=== PATIENT | female | born 1960 | race Caucasian/White ===

== ENCOUNTER 2022-05-26 10:37 | Outpatient (CLI) | payer BC, SELFPAY ==
--- NOTE | 2022-05-26 11:00 | CRLHL7_ITS ---
For Patients: As a result of the Century Cures Act, medical imaging exams and procedure reports are released immediately into your electronic medical record. You may view this report before your referring provider. If you have questions, please contact your health care provider. Indication: non-small cell lung cancer Technique: Postcontrast CT chest, abdomen and pelvis. 65 cc Isovue 370 intravenous contrast. Oral water. Please note that all CT scans at this facility use dose modulation, iterative reconstruction, and/or weight-based dosing when appropriate to reduce radiation dose to as low as reasonably achievable. Comparison: MRI pelvis 02/06/2021, CT chest 05/05/2021, CT-PET 07/06/2021 Findings: In the chest, there is a stable heterogeneous nodule within the left thyroid lobe. Stable focal area of low attenuation within the right paratracheal tissues. No pericardial effusion. Breast tissue is unremarkable. Post treatment changes to the right upper lung with linear areas of scarring, unchanged. No pneumothorax or pleural effusion. No pulmonary edema. There is a stable calcified nodule within the left upper lobe and additional stable nodule within the lingula. No new nodule. Chronic scarring at the left lower lobe. No fracture is present. There is no suspicious osseous lesion. In the abdomen, there is no suspicious intrahepatic lesion. The gallbladder is normal. No calcified gallstones. No biliary obstruction. Normal pancreas. The spleen is normal. Normal adrenal glands. No solid renal mass. Simple left renal cysts are present measuring up to 2.2 cm. The ureters are within normal limits. Dense vascular calcifications in the aorta. The aorta is ectatic measuring up to 2.5 cm. No retroperitoneal or mesenteric adenopathy. No vertebral body compression fracture. In the pelvis, stable appearance of the left sacrum with a mildly displaced fracture deformity. The pubic rami are intact. The bladder is normal. No pelvic soft tissue mass. Diverticulosis. No diverticulitis. Normal appendix. No pelvic or inguinal adenopathy. Impression: Stable post treatment changes to the right upper lung and stable appearance of the mediastinum without new findings in the chest compared to the prior exams. Stable left-sided pulmonary nodules. Similar appearance of the left sacrum with a fracture deformity. Correlate with the CT PET report. No adenopathy in the abdomen or pelvis. Please note that all CT scans at this facility use dose modulation, iterative reconstruction, and/or weight-based dosing when appropriate to reduce radiation dose to as low as reasonably achievable. Dictated by Panfilo Salas MD @ 05/27/2022 11:06:40 AM (Electronically Signed)
[2022-05-26 11:10] LABS: Creatinine* 0.9 mg/dL (0.5-1.5); Estimated Glomerular Filt Rate 72 ml/min
== END 2022-05-26 10:38 | disposition home or self-care (01) ==
LOC: CT 10:37
PROVIDERS: PCP Family Medicine; Visit Provider Internal Medicine Hematology & Oncology
DX: C34.11 Malignant neoplasm of upper lobe, right bronchus or lung (principal); R91.8 Other nonspecific abnormal finding of lung field
CPT/HCPCS: 36415; 71260; 74177; 82565; Q9967

== ENCOUNTER 2023-02-28 16:26 | Emergency (ER) | payer BC, SELFPAY ==
[2023-02-28] VITALS (8 sets, daily range): BP systolic 129–143; BP diastolic 80–90; PULSE 97–115; RESP 18; TEMP 36.8; O2SAT 91–97; BMI 26.6
--- NOTE | 2023-02-28 17:32 | CRLHL7_ITS ---
For Patients: As a result of the 21st Century Cures Act, medical imaging exams and procedure reports are released immediately into your electronic medical record. You may view this report before your referring provider. If you have questions, please contact your health care provider. INDICATION: Shortness of breath. Tachycardia. Non-small cell lung cancer. Weakness. History of right lobectomy. TECHNIQUE: CT chest pulmonary angiogram acquired with 95 cc of Isovue 370 IV contrast. Sagittal and coronal reformatted images submitted for review. COMPARISON: CT chest, abdomen and pelvis 05/26/2022. FINDINGS: Cardiovascular structures: CT pulmonary angiogram demonstrates adequate opacification of the pulmonary arteries. No evidence of pulmonary embolus. Heart size is within normal limits. Coronary artery calcifications. Aortic atherosclerosis. Thoracic aorta is normal in caliber. Mediastinum and jordyn: No progressive lymphadenopathy. Lungs: No pneumothorax. Central airways are patent. Right upper lobe treatment related changes with scarring and atelectasis again noted. Dense opacification of the anterior right middle lobe with nodular opacity on image 41 of series 5 it is new/increased. There are multiple additional new bilateral subcentimeter nodular and ground-glass opacities. For example, an irregular right lung nodule on image 81 measures 15 mm. Additional dense irregular consolidation on image 94. Focal dense consolidation in the left lower lobe on image 157. Nodular opacities in the lingula, for example as seen on image 117 are also new. Stable left upper lobe calcified granuloma. Pleura and pericardium: Trace bilateral pleural fluid versus pleural thickening. No pericardial effusion. Chest wall and axilla: Stable heterogeneous nodule in the left thyroid lobe. Soft tissues of the thoracic wall are otherwise unremarkable. Bones: No acute or suspicious osseous abnormality. Degenerative changes of the spine. Upper abdomen: Unremarkable. IMPRESSION: 1. No evidence of pulmonary embolus. 2. New bilateral dense irregular airspace consolidation with multiple additional new bilateral subcentimeter nodular and ground-glass opacities. Findings may represent bilateral pneumonia, however, metastasis is not excluded. Short interval follow-up CT is recommended for further evaluation. Dictated by Jamie Castellanos MD @ 02/28/2023 7:45:50 PM Please note that all CT scans at this facility use dose modulation, iterative reconstruction, and/or weight-based dosing when appropriate to reduce radiation dose to as low as reasonably achievable. Dictated by: Jamie Castellanos MD @ 02/28/2023 19:46:00 (Electronically Signed)
[2023-02-28 17:52] LABS: PCR FLU A Negative PCR FLU A (Negative); PCR FLU B Negative PCR FLU B (Negative); PCR RSV Negative PCR RSV (Negative)
[2023-02-28 17:58] LABS: SARS PCR* Negative SARS-CoV-2 (Negative)
[2023-02-28 18:04] LABS: Lactate* 0.8 mmol/L (0.5-1.9)
[2023-02-28 18:09] LABS: Basophils Absolute Auto 0.04 K/uL (0.00-0.30); Basophils Percent Auto 0.4 % (0.0-3.0); Eosinophils Absolute Auto 0.18 K/uL (0.00-0.50); Eosinophils Percent Auto 1.7 % (0.0-7.0); Hematocrit 40.8 % (33.0-51.0); Hemoglobin* 13.3 gm/dL (12.0-16.0); Immature Granulocytes Abs Auto 0.09 K/uL (0.00-0.30); Immature Granulocytes Pct Auto 0.8 %; Lymphocytes Percent Auto 5.3 % (20-44); Mean Corpuscular HGB Conc 33 gm/dL (32-36); Mean Corpuscular Hemoglobin 31 pg (26-34); Mean Corpuscular Volume 95 fL (80-100); Monocytes Percent Auto 7.5 % (0.0-11.0); Neutrophils Percent Auto 84.3 % (42.0-72.0); Platelet Count* 218 K/uL (140-440); RDW Coefficient of Variation % 11.8 % (11.5-15.5); Red Blood Count 4.28 m/uL (4.00-5.20); White Blood Count* 10.84 K/uL (4.50-11.00)
--- NOTE | 2023-02-28 18:09 | ED_ITS ---
HPI - General Adult General Date Seen: 02/28/23 Chief complaint: Shortness of Breath/Dyspnea Stated complaint: UP resp [id number]-capa breathing.covid neg W Time Seen by Provider: 02/28/23 17:19 Source: patient Mode of arrival: ambulatory Limitations: no limitations History of Present Illness HPI narrative: Patient is a 62-year-old woman who presents for evaluation of shortness of ana maría th. She says she has been little sick for the past week with a cough, was sick as well knee both had negative COVID tests last Tuesday. She has not run a fever, she has not had chest pain but she feels that it has become significantly difficult to breathe over the past day or 2 and she has also been very fatigued, sleeping a lot. She has a prior history of lung cancer, she is maintained on a maintenance drug now, previously was on palliative care but says that she is good as far she knows from a cancer standpoint. She has had swelling in both legs lately, it is better since getting sick but she says her legs have been really swollen, she has been told is maybe because of her cancer medication and so the dose was decreased. She has been on a diuretic as well. She has not had redness or pain in her legs. She does not have a history of DVT or PE. She does not have a history of heart failure or other heart disease. She quit smoking a couple of years ago. Related Data Home Medications Medication Instructions Recorded Confirmed albuterol sulfate 90 mcg/actuation inhalation 02/28/23 aerosol inhaler duloxetine 20 mg capsule,delayed 20 mg PO BID 02/28/23 02/28/23 release furosemide 20 mg tablet 20 mg PO DAILY 02/28/23 02/28/23 Allergies Allergy/AdvReac Type Severity Reaction Status Date / Time sulfamethoxazole Allergy Mild Hives Verified 02/28/23 18:42 trimethoprim Allergy Mild Hives Verified 02/28/23 18:42 Sulfa drugs Allergy Mild Hives Uncoded 02/28/23 18:42 Review of Systems Status of ROS: Reports: 10 or more systems reviewed and unremarkable except as noted in History and below [facility] Medical History History of benign breast biopsy ?Z98.890 - Other specified postprocedural states (ICD-10) Surgical History History of hysterectomy for benign disease (2006) ?Z90.710 - Acquired absence of both cervix and uterus (ICD-10) Family History Mother Depression Social History Narrative: does not have regular exercise regimen- but walks a lot, dances , retired retail general manager, 3 adult kids rarely consumes alcohol tobacco abuse- 2 packs/ day x 40 years (80 pack years) Smoking Status: Former smoker What tobacco products do you use: cigarettes Smoking quit date/years: <= 15 years ago Non-prescribed substance use: denies use Exam Narrative: Exam Narrative: Vital signs as noted above. In general, an alert, nontoxic woman. No increased work of breathing, she does take fairly deep intentional breaths. Head: Normocephalic, atraumatic. Eyes: Pupils are equal reactive. Extraocular movements are full. Conjunctivae are normal. ENT: Mucous membranes are moist. Throat is normal. Neck: Supple without lymphadenopathy. Heart: Regular rate and rhythm. No murmur or rub. Lungs: Some crackles noted primarily on the left, no wheezes, no increased work of breathing. Abdomen: Soft and nontender. No organomegaly. Extremities: Well perfused. Mild edema noted in both lower legs, no erythema or calf tenderness. Neurologic: Patient is alert and oriented to person and place. Speech is fluent. Face is symmetric. Moves all extremities equally. Affect: Normal. Skin: Warm and dry. Well perfused. Const: Vital Signs, click to edit/add: Vital Signs - 24 hr 02/28/23 16:59 02/28/23 17:32 02/28/23 17:33 Temperature 98.2 F Pulse Rate 101 H Pulse Rate [Right Pulse Oximeter] 112 H Respiratory Rate 18 Blood Pressure 130/80 Blood Pressure [Ri ght Upper Arm] 143/90 H Pulse Oximetry 94 94 94 Oxygen Delivery Me thod Room Air 02/28/23 17:34 02/28/23 17:47 02/28/23 18:43 Temperature Pulse Rate 97 100 115 H Pulse Rate [Right Pulse Oximeter] Respiratory Rate Blood Pressure Blood Pressure [Ri ght Upper Arm] Pulse Oximetry 97 91 95 Oxygen Delivery Me thod 02/28/23 18:45 02/28/23 18:50 Temperature Pulse Rate 104 H 102 H Pulse Rate [Right Pulse Oximeter] Respiratory Rate Blood Pressure 129/82 Blood Pressure [Ri ght Upper Arm] Pulse Oximetry 96 96 Oxygen Delivery Me thod Documenting provider has reviewed patient's vital signs: yes Course Course ED Course: Patient was maintained on pulse oximetry, did not require oxygen. An EKG done by my review shows sinus rhythm with a ventricular rate of 93 beats per minute, incomplete right bundle-branch block, no acute ST segment changes, T-waves are unremarkable. Labs pending. I have decided just to do a CT scan of the chest given her edema and cancer history, tachycardia and mild hypoxia. COVID is negative. Blood work is notable for a normal white blood cell count of 10.8 with a left shift of 84% neutrophils. Hemoglobin is normal. Her D-dimer did return elevated at 1.2, metabolic panel is unremarkable. Lactate is normal at 0.8 but CRP was elevated at 22. BNP normal at 192. Lipase was 52, LFTs normal. Respiratory panel negative. CT scan by my review did not show any evidence of pulmonary embolism although she did have patchy opacifications in both lungs. Final radiology read is as follows:FINDINGS: Cardiovascular structures: CT pulmonary angiogram demonstrates adequate opacification of the pulmonary arteries. No evidence of pulmonary embolus. Heart size is within normal limits. Coronary artery calcifications. Aortic atherosclerosis. Thoracic aorta is normal in caliber. Mediastinum and jordyn: No progressive lymphadenopathy. Lungs: No pneumothorax. Central airways are patent. Right upper lobe treatment related changes with scarring and atelectasis again noted. Dense opacification of the anterior right middle lobe with nodular opacity on image 41 of series 5 it is new/increased. There are multiple additional new bilateral subcentimeter nodular and ground-glass opacities. For example, an irregular right lung nodule on image 81 measures 15 mm. Additional dense irregular consolidation on image 94. Focal dense consolidation in the left lower lobe on image 157. Nodular opacities in the lingula, for example as seen on image 117 are also new. Stable left upper lobe calcified granuloma. Pleura and pericardium: Trace bilateral pleural fluid versus pleural thickening. No pericardial effusion. Chest wall and axilla: Stable heterogeneous nodule in the left thyroid lobe. Soft tissues of the thoracic wall are otherwise unremarkable. Bones: No acute or suspicious osseous abnormality. Degenerative changes of the spine. Upper abdomen: Unremarkable. IMPRESSION: 1. No evidence of pulmonary embolus. 2. New bilateral dense irregular airspace consolidation with multiple additional new bilateral subcentimeter nodular and ground-glass opacities. Findings may represent bilateral pneumonia, however, metastasis is not excluded. Short interval follow-up CT is recommended for further evaluation. I have discussed these findings with her. Discussed possible admission if she felt she needed it but she says she thinks she can go home. Will go ahead and prescribe antibiotics, discussed that in terms of the clinical picture it certainly seems as if this could be pneumonia and if so I would expect her to start feeling better over the next few days. She is scheduled to have a CT scan, her regular surveillance scan in a couple of weeks, and I have asked her to talk this over with her oncologist to see if they want to push that back a week or 2 to follow-up on today's CT and make sure that showing resolution. If at any time she is feeling worse, has severe shortness of breath, high fevers ch ills vomiting etcetera, return to the emergency department. Doxycycline prescribed out of [employer]. Vital Signs Vital signs: Initial Vital Signs Respiratory Effort Normal, Spontaneous, Short of Breath 02/28/23 16:58 Respiratory Depth Normal 02/28/23 16:58 Vital Signs Temperature 98.2 F 02/28/23 16:59 Pulse Rate 112 H 02/28/23 16:59 Respiratory Rate 18 02/28/23 16:59 Blood Pressure 143/90 H 02/28/23 16:59 Pulse Oximetry 94 02/28/23 16:59 Oxygen Delivery Method Room Air 02/28/23 16:59 Temperature 98.2 F 02/28/23 16:59 Pulse Rate 102 H 02/28/23 18:50 Respiratory Rate 18 02/28/23 16:59 Blood Pressure 129/82 02/28/23 18:50 Pulse Oximetry 96 02/28/23 18:50 Oxygen Delivery Method Room Air 02/28/23 16:59 Medical Decision Making Lab Data Labs: Lab Results 02/28/23 02/28/23 Range/Units 17:05 17:55 WBC 10.84 (4.50-11.00) K/uL RBC 4.28 (4.00-5.20) m/uL Hgb 13.3 (12.0-16.0) gm/dL Hct 40.8 (33.0-51.0) % MCV 95 (80-100) fL MCH 31 (26-34) pg MCHC 33 (32-36) gm/dL RDW Coeff of [place] 11.8 (11.5-15.5) % Plt Count 218 (140-440) K/uL Neut % (Auto) 84.3 H (42.0-72.0) % Lymph % (Auto) 5.3 L (20-44) % Ida % (Auto) 7.5 (0.0-11.0) % Eos % (Auto) 1.7 (0.0-7.0) % Baso % (Auto) 0.4 (0.0-3.0) % Neut # (Auto) 9.10 H (1.7-7.0) K/uL Lymph # (Auto) 0.60 L (0.90-2.90) K/uL Ida # (Auto) 0.80 (0.00-0.90) K/UL Eos # (Auto) 0.18 (0.00-0.50) K/uL Baso # (Auto) 0.04 (0.00-0.30) K/uL Abs Immat Gran (auto) 0.09 (0.00-0.30) K/uL Imm/Tot Granulo (auto) 0.8 % D-Dimer Quant (PE/DVT) 1.19 H (0.00-0.50) ug/ml Sodium 138 (135-149) mmol/L Potassium 3.6 (3.6-5.1) mmol/L Chloride 104 (96-114) mmol/L Carbon Dioxide 28 (20-32) mmol/L Anion Gap 6 L (7-15) mEq/L BUN 17 (7-30) mg/dL Creatinine 1.0 (0.5-1.5) mg/dL Estimated Creat Clear 49.08 Estimated GFR 63 ml/min Glucose 103 (60-115) mg/dL Lactate 0.8 (0.5-1.9) mmol/L Calcium 8.9 (8.4-10.6) mg/dL Total Bilirubin 0.9 (0.1-1.5) mg/dL Direct Bilirubin 0.2 (0.0-0.5) mg/dL AST 26 (12-35) U/L ALT 21 (4-35) U/L Alkaline Phosphatase 105 (40-150) U/L C-Reactive Protein 22.0 H (0.5-1.0) mg/dL NT-Pro-B Natriuret Pep 192 pg/mL Total Protein 6.2 (6.0-8.3) g/dL Albumin 3.3 (3.3-5.0) g/dL Lipase 52 (23-300) U/L SARS-CoV-2 (PCR) Negative SARS-CoV-2 (Negative) Influenza Type A (PCR) Negative PCR FLU A (Negative) Influenza Type B (PCR) Negative PCR FLU B (Negative) RSV (PCR) Negative PCR RSV (Negative) Discharge Plan Discharge Clinical Impression: History of lung cancer, Pneumonia Patient Disposition: Home, Self-Care Condition: Stable Instructions: Pneumonia (ED) Additional Instructions: Antibiotic as prescribed. For significant difficulty breathing, high fevers, shaking chills, vomiting or other worsening symptoms, return to the emergency department. Otherwise, please review CT findings with your oncologist to determine best timing for your next CT scan. Activity Level: No Restrictions Discharge Diet: Regular Prescriptions: No Action furosemide 20 mg tablet 20 mg PO DAILY albuterol sulfate 90 mcg/actuation HFA aerosol inhaler inhalation duloxetine 20 mg capsule,delayed release(DR/EC) 20 mg PO BID Follow Up/Referrals: Edlima Carson MD [Primary Care Provider] - Stand Alone Forms: [employer] Info Instructions
[2023-02-28 18:10] LABS: Slide Review Reflex No
[2023-02-28 18:29] LABS: Albumin* 3.3 g/dL (3.3-5.0); Chloride* 104 mmol/L (96-114); Sodium* 138 mmol/L (135-149)
[2023-02-28 18:30] LABS: Potassium* 3.6 mmol/L (3.6-5.1)
[2023-02-28 18:32] LABS: Alkaline Phosphatase* 105 U/L (40-150); Anion Gap 6 mEq/L (7-15); Aspartate Amino Transferase* 26 U/L (12-35); Bilirubin Direct* 0.2 mg/dL (0.0-0.5); Bilirubin Total* 0.9 mg/dL (0.1-1.5); Blood Urea Nitrogen* 17 mg/dL (7-30); Carbon Dioxide* 28 mmol/L (20-32); Est. Creatinine Clearance* 49.08; Estimated Glomerular Filt Rate 63 ml/min; Total Protein* 6.2 g/dL (6.0-8.3)
[2023-02-28 18:33] LABS: Alanine Aminotransferase* 21 U/L (4-35); Calcium* 8.9 mg/dL (8.4-10.6); Glucose* 103 mg/dL (60-115); Lipase* 52 U/L (23-300)
[2023-02-28 18:38] LABS: D Dimer Quantitative* 1.19 ug/ml (0.00-0.50)
[2023-02-28 18:42] LABS: NT Pro B Type NatriureticPept* 192 pg/mL
== END 2023-02-28 20:14 | disposition home or self-care (01) ==
PROVIDERS: Emergency Provider Emergency Medicine; PCP Family Medicine
DX: J18.9 Pneumonia, unspecified organism (principal); Z85.118 Personal history of other malignant neoplasm of bronchus and lung
CPT/HCPCS: 36415; 71275; 80048; 80076; 83605; 83690; 83880; 85025; 85379; 86140; 87631; 93005; 94761; 99284; 99285; Q9967

== ENCOUNTER 2023-08-10 14:15 | Outpatient (RCR) | payer BC, SELFPAY | END 2023-12-08 23:59 | disposition home or self-care (01) | PROVIDERS: PCP Family Medicine; Visit Provider Family Medicine | DX: R60.0 Localized edema (principal); Z51.89 Encounter for other specified aftercare | CPT/HCPCS: 97110; 97140; 97166; 97535; X5282 ==

== ENCOUNTER 2023-12-05 13:35 | Outpatient (CLI) | payer BC, SELFPAY ==
--- OUTSIDE RECORDS SUMMARY | 2023-12-05 13:39 | XMS_ITS | Clinical Summary ---
Author Organization [facility] Address [place], [place] [address] Care Team Providers Care Box Icer Name Role Phone Edilma Carson MD Primary Care Provider Panfilo Figueroa MD Unavailable [phone] Janice Espinoza RN, BSN, OCN Unavailable + [phone] Rusty Carr MD Unavailable + [phone] Arlen Britton Unavailable Allergies Active Allergy Reactions Criticality Noted Date Comments Sulfamethoxazole-Trimetho prim Hives 05/12/2007 localized urticarial lesions developed on her scalp while taking this medication April 2007. Medications Medication Sig Dispensed Refills Start Date End Date Status Tabrecta 200 mg tab Take 200 mg by mouth 2 times daily. 03/20/2021 Active ibuprofen (ADVIL; MOTRIN) 200 mg tablet Take 1 Tablet (200 mg) by mouth every 6 hours. 0 04/27/2021 Active albuterol HFA (PRO-AIR; VENTOLIN; PROVENTIL) 90 mcg/actuation inhalerIndications:C hronic obstructive pulmonary disease, unspecified COPD type (HC) INHALE 1-2 PUFFS BY MOUTH 4 TIMES DAILY IF NEEDED FOR SHORTNESS OF BREATH OR WHEEZING 1ST CHOICE 1 Each 02/16/2023 Active furosemide (LASIX) 20 mg tabletIndications:Bi lateral leg edema,Lymphedema Take 1 Tablet (20 mg) by mouth every morning. 90 Tablet 3 09/28/2023 Active levalbuterol (XOPENEX HFA) 45 mcg/actuation inhalerIndications:C hronic obstructive pulmonary disease, unspecified COPD type (HC) Inhale 1-2 Puffs by mouth every 4 hours if needed for Shortness Of Breath or Wheezing. 15 g 2 09/28/2023 Active triamcinolone 0.1 % ointmentIndications: Rash Apply topically to affected area(s) three times daily. 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 Nunez Migraine headache 04/09/2011 Tobacco use disorder 07/27/2010 Sinus congestion 04/06/2010 Unspecified vitamin D deficiency 10/02/2007 Lung mass Encounters Date Type Department Care Team Description 10/03/2023 3:20 PM CDT Ancillary Procedure [facility] [address] [place] [facility] [place] [address] 10/03/2023 2:30 PM CDT Ancillary Procedure [facility] [address] [facility] [place] [address] 10/03/2023 Travel 09/29/2023 Orders Only [facility] [address] [facility] [place] [address] Edilma Carson MD <No scans attached> 09/28/2023 7:30 AM CDT Office Visit [facility] [address] [facility] [place] [address] Edilma Carson MD Physical (63 year old); Derm Problem (Rash on left leg, mole check) 09/28/2023 Travel 09/08/2023 Telephone [facility] [address] [place] [address] Edilma Carson MD Medication Management (Compression Socks) 09/07/2023 10:30 AM CDT Ancillary Procedure [facility] [address] [place] [address] 09/07/2023 10:15 AM CDT Orders Only [facility] [address] [place] [address] [facility], [facility] 09/07/2023 Travel from Last 3 Months Immunizations Name Administration Dates Next Due COVID-19 Vaccine Spikevax (M oderna 50mcg/0.5mL) 12YO+ 4461-3051 Formula PF 03/30/2023 COVID-19 vaccine (Pfizer-Bio NTech 30mcg/0.3mL) 12YO+ BIVALENT PF, MDV 05/17/2022 Influenza RIV4 (Age 18+ Year s) PRESERV FREE 03/07/2021 Influenza, IIV4 03/30/2023,,04/10/2020,2018 Pneumococcal Conj 20-valent (Prevnar 20) 09/28/2023 Tdap 04/29/2015,10/22/2011 Zoster (Shingrix-RZV, recombinant) 05/17/2022, Family History Medical History Relation Name Comments Other Brother migraines Other Mother migraines Psychiatric illness Mother depressi on Cancer-breast No Family History Cancer-colon No Family History Cancer-ovarian No Family History Relation Name Status Comments Brother Mother (Age 74) ? liver or pancreas Social History Tobacco Use Types Packs/Day Years Used Date Smoking Tobacco: Former Cigarettes 1.5 42 0 05/27/1978 - 05/27/2020 Smokeless Tobacco: Never Tobacco Cessation:Counseling Given: Yes Comments:trying to quit Alcohol Use Standard Drinks/Week Comments Yes 0 (1 standard drink = 0.6 oz pur e alcohol) Maybe 1 drink every 6 months Humiliation, Afraid, Rape, and Kick questionnair e Answer Date Recorded Fear of Current or Ex-Partner No Emotionally Abused No 04/10/2020 Physically Abused No 04/10/2020 Sexually Abused No 04/10/2020 PHQ-2 Answer Date Recorded PHQ-2 TOTAL SCORE 2 03/31/2023 [facility] [place] [facility] Occupat ional [facility] - Occupational Stress Questionnaire Answer Date Recorded Feeling of Stress Not at all 04/10/2020 Exercise Vital Sign Answer Date Recorde d Days of Exercise per Week 1 day 2019 Minutes of Exercise per Session 30 min 04/10/2020 Social Connections Answer Date Recorded Frequency of Communication with Friends and Fami ly 0 09/28/2023 Financial Resource Strain Answer Date R ecorded Difficulty of Paying Living Expenses 3 09/28/2023 Difficulty of Paying Living Expenses Not on file 09/28/2023 Food Insecurity Answer Date Recorded Worried About Running Out of Food in the Last Ye ar 1 09/28/2023 Transportation Needs Answer Date Record ed Lack of Transportation (Medical) 1 09/28/2023 Housing Stability Answer Date Recorded Unable to Pay for Housing in the Last Year 1 09/28/2023 Sex and Gender Information Value Date Recorded Sex Assigned at Not on file Gender Identity Not on file Sexual Orientation Not on file Obstetrics History Para Term AB IAB SAB Ectopic Multiple Livin g Live Births 5 3 3 2 2 3 Date Outcome GA Total Labor Labor/2nd/3rd Weight Sex Type Anes PTL Carol A1 A5 Name Clin Term Term Term SAB SAB Last Filed Vital Signs Vital Sign Reading Time Taken Comments Blood Pressure 117/77 09/28/2023 7:38 AM CDT Pulse 68 09/28/2023 7:38 AM CDT Temperature 36.9 ??C (98.5 ??F) 05/20/2021 12:[address] Respiratory Rate 16 04/08/2023 10:29 AM [facility] Oxygen Saturation 96% 09/28/2023 7:38 AM CDT Inhaled Oxygen Concentration - - Weight 76.9 kg (169 lb 9.6 oz) 09/28/2023 7:38 A M CDT Height 165 cm (5' 4.96) 09/28/2023 7:38 AM CDT Body Mass Index 28.26 09/28/2023 7:38 AM CDT Plan of Treatment Upcoming Encounters Date Type Department Care Team (Late st Contact Info) Description 12/05/2023 2:00 PM CDT Ancillary Procedure [facility] [address] [place] [address] Health Maintenance Due Date Last Done Comments HIV for age 15-65 1973 COVID-19 vaccine series (2022- season) 2023 03/30/2023, 05/17/2022, 12/29/2021, Additional history exists Influenza for age 65+ 01/22/2024 03/30/2023 , 03/04/2022, 03/07/2021, Additional history exists Depression screening for age 12+ 03/31/2024 03/31/2023, 03/31/2023, 03/30/2023, Additional history exists Low Dose CT (for lung CA) ag e 50-80 09/06/2024 09/07/2023, 04/26/2023, 03/30/2023, Additional history exists BMI (ht and wt on same day) for age 18+ 09/27/2024 09/28/2023, 04/08/2023, 01/29/2021, Additional history exists Mammogram for age 45-75 10/02/2024 10/03/19 24, 08/23/2022, 07/31/2021, Additional history exists Tetanus booster 04/29/2025 04/29/2015, 10/22/2011 Lipids for age 45-75 09/27/2028 09/28/2023, 09/08/2018, 08/18/2017, Additional history exists Colonoscopy through age 75 12/15/203012/15, 12/15/2020, 12/16/2008, Additional history exists Hepatitis C screening for ag e 18-79 Completed 04/09/2014 Tdap Completed 04/29/2015, 10/22/2011 Zoster (shingles) series for age 50+ Completed 05/17/2022, 03/04/2022 Pneumococcal series for age 65+ Completed DEXA/DXA scan for age 65+ Completed 10/03/2023, Procedures Procedure Name Priority Date/Time Associated Diagnosis Comments XR MAMMO BILAT SCREENING Routine 10/03/2023 2:56 PM CDT Visit for screening mammogram XR DXA BONE DENSITY 2 SITES AXIAL Routine 10/03/2023 2:37 PM CDT Menopause HEMOGLOBIN A1C SCREENING Routine 09/28/2023 8:44 AM CDT Diabetes mellitus screening LIPID PANEL W REFLEX MEASURED LDL Routine 09/28/2023 8:44 AM CDT Lipid screening BASIC METABOLIC PANEL Routine 09/28/2023 8:44 AM CDT Diabetes mellitus screening CT CHEST ABDOMEN PELVIS W Routine 09/07/2023 11:14 AM CDT Non-small cell lung cancer (HC) CREATININE,ISTAT Routine 09/07/2023 10:3 9 AM CDT Observation or evaluation for suspected condition SCAN-COLONOSCOPY 12/15/2020 12:0 0 AM CDT ANTI HCV Routine 04/09/2014 8:32 AM [facility] Need for hepatitis C screening test from Last 3 Months or Most Recently Relevant to Health Maintenance Results * XR MAMMO BILAT SCREENING (10/03/2023 2:56 PM CDT) Anatomical Region Laterality Modality BREASTS, Breast Left, Breast Right Bilateral Mammography Impressions 10/04/2023 3:26 PM CDT ??There is no radiographic evidence for malignancy. ??Recommend annual mammograms. MAMMOGRAM ASSESSMENT: ??ACR 1 Negative PATIENTS: You will also receive a letter with your examination results in an easy to read format. ??If you have questions about your results, please contact your referring provider. Narrative 10/04/2023 3:26 PM CDT For Patients: As a result of the 21st Century Cures Act, medical imaging exams and procedure reports are released immediately into your electronic medical record. You may view this report before your referring provider. If you have questions, please contact your health care provider. XR MAMMO BILAT SCREENING [[id number]] CLINICAL HISTORY: ??This is an asymptomatic 63 y.o. patient. INDICATION FOR EXAM: Mammogram Screening. TECHNIQUE: CC & MLO views were obtained. ??This study was evaluated with the assistance of Computer-Aided Detection. COMPARISON FILM: Yes 08/23/22 [facility] ?? FINDINGS: ??The breasts are heterogeneously dense, which may obscure small masses. There are no dominant masses, suspicious micro calcifications or areas of architectural distortion. Edilma Carson MD MAMMO * (ABNORMAL) XR DXA BONE DENSITY 2 SITES AXIAL (10/03/2023 2:37 PM CDT) Anatomical Region Laterality Modality Spine, HIPS, HIPL, HIPR Other Impressions 10/11/2023 1:53 PM CDT Osteopenia. RECOMMENDATIONS: The National Osteoporosis Foundation recommends pharmacologic treatment for patients with T-scores of -2.5 or less, patients with prior history of fragility fractures, or patients with 10-year probability of greater than 3% at hips or greater than 20% of suffering major osteoporotic fractures. Recommend continued optimization of calcium and vitamin D intake through dietary means and/or supplementation and regular exercise. Repeat scan recommended in 3-5 years. Zahra Stark PA-C [facility] 10/11/2023 Narrative 10/11/2023 1:53 PM CDT For Patients: Results are automatically released to your [facility] ([employer]) account once available, in compliance with federal regulations. This means that you may see your results before your provider has had a chance to review them. Please allow 2-3 business days for your provider to comment on the results. XR DXA Bone Mineral Density (BMD) EXAM LOCATION: [address] [address] PATIENT NAME: Priya Coleman DATE OF : 1960 EXAM DATE: 10/03/2023 REQUESTING PROVIDER: Edilma Carson MD GENDER AT : female HEIGHT: 5' 4.96 (09/28/2023) WEIGHT: ??169 lb 9.6 oz (09/28/2023) MENOPAUSAL STATUS: Postmenopausal RACE/ETHNICITY: White RISK FACTORS: Cancer Treatment, Family History of Osteoporosis, Smoking (prior), and White Race CURRENT MEDICATION FOR BONE LOSS: NONE INDICATION: Post-Menopause COMPARISON DATE(S): 2013 DXA scans are compared to prior studies for a patient only when the two (or more) studies were performed on the same scanner. It is not possible to compare data generated on one scanner to data from another because there are not standards in DXA equipment. This applies even if the two scanners are made by the same airplane pilot. PROCEDURE: Dual-energy x-ray absorptiometry performed with routine technique. Reporting is completed in the form of a T-score. The T-score represents the standard deviation from peak bone mass based on young healthy adult. A Z-score is used for diagnosis in premenopausal women, and for men under the age of 50. FINDINGS: RESULT LUMBAR SPINE L1 - L4 BMD: 1.065 g/cm2 T-Score: - 1.0 Z-Score: + 0.2 Change from prior in 2013: ??Decrease 4.6%. RESULTS FEMUR Left femoral neck BMD: 0.753 g/cm2 T-Score: - 2.0 Z-Score: - 0.8 Change from prior in 2013: ??Decrease 17.0%. Right femoral neck BMD: 0.778 g/cm2 T-Score: - 1.9 Z-Score: - 0.7 Change from prior in 2013: ??Decrease 15.1%. Left hip BMD: 0.750 g/cm2 T-Score: - 2.0 Z-Score: - 1.1 Change from prior in 2013: ??Decrease 16.4%. Right hip BMD: 0.790 g/cm2 T-Score: - 1.7 Z-Score: - 0.8 Change from prior in 2013: ??Decrease 15.3%. WHO criteria: Normal: T-score at or above -1 SD Osteopenia: T-score between -1.1 and -2.4 SD Osteoporosis: T-score at or below -2.5 SD FRAX RISK CALCULATION (USED FOR OSTEOPENIA ONLY): 10-year probability of major osteoporotic fracture: 10.8%. 10-year probability of hip fracture: 1.7%. Edilma Carson MD DEXA * HEMOGLOBIN A1C SCREENING (09/28/2023 8:44 AM CDT) [facility] HEMOGLOBIN A1C SCREENING 5.0 <=6.4 % 09/28/2023 9:06 PM CDT [facility] Blood BLOOD SPECIMEN / Unknown Venipuncture / Unknown 09/28/2023 8:44 AM CDT 09/28/2023 8:44 AM CDT Narrative [facility] - 09/28/2023 9:06 PM CDT ? (<5.7%) ?Normal ? (5.7% to 6.4%) ? Indicates prediabetes ? (>=6.5%) ? Confirms diabetes Falsely low levels may be seen with: Recent Transfusion, Recent Significant Blood Loss, Hemolytic Diseases, or Falsely elevated levels may be seen with: Untreated Anemias, Splenectomy Edilma Carson MD CHEMISTRY [facility] [address] [place] [address], * LIPID PANEL W REFLEX MEASURED LDL (09/28/2023 8:44 AM CDT) CHOLESTEROL,TOTAL 181 100 - 199 mg/dL 09/28/2023 6:19 PM [facility] Comment: Cholesterol, Total Reference Ranges Desirable <200 mg/dL Borderline 200-239 mg/dL High >=240 mg/dL TRIGLYCERIDES 45 <150 mg/dL 09/28/2023 6:19 PM T [facility] HDL CHOLESTEROL 54 >40 mg/dL 6:19 PM T [facility] NON-HDL CHOLESTEROL 127 <145 mg/dl 09/28/2023 6:19 PM [facility] CHOL/HDL RATIO 3.35 <4.50 09/28/2023 6:19 PM T [facility] LDL CHOLESTEROL 118 <=130 mg/dL 09/28/2023 6:19 PM T [facility] VLDL CHOLESTEROL 9 <=30 mg/dL 09/28/2023 6:19 PM CDT [facility] PROVIDER ORDERED STATUS RANDOM 09/28/2023 6:19 PM T [facility] Blood BLOOD SPECIMEN / Unknown Venipuncture / Unknown 09/28/2023 8:44 AM CDT 09/28/2023 8:44 AM CDT Edilma Carson MD CHEMISTRY [facility] [address] [place] [address], * (ABNORMAL) BASIC METABOLIC PANEL (09/28/2023 8:44 AM CDT) SODIUM 144 136 - 145 mmol/L 09/28/2023 6:19 PM CDT [facility] POTASSIUM 3.7 3.5 - 5.1 mmol/L 09/28/2023 6:19 PM T [facility] CHLORIDE 107 98 - 107 mmol/L 09/28/2023 6:19 PM CDT [facility] CO2,TOTAL 28 22 - 29 mmol/L 09/28/2023 6:19 PM T [facility] ANION GAP 9 5 - 18 09/28/2023 6:19 PM T [facility] GLUCOSE 96 70 - 99 mg/dL 09/28/2023 6:19 PM T [facility] CALCIUM 9.1 8.8 - 10.2 mg/dL 09/28/2023 6:19 PM T [facility] BUN 22 8 - 23 mg/dL 09/28/2023 6:19 PM T [facility] CREATININE 1.28(H) 0.50 - 0.90 mg/dL 09/28/2023 6:19 PM T [facility] BUN/CREAT RATIO 17 10 - 20 6:19 PM T [facility] eGFR 47(L) >90 mL/min/1.7 3m2 09/28/2023 6:19 PM CDT [facility] Comment:As of 2021, eG FR is calculated by the CKD-EPI creatinine equation without race adjustment. ??eGFR can be influenced by muscle mass, exercise, and diet. ??The reported eGFR is an estimation only and is only applicable if the renal function is stable. Blood BLOOD SPECIMEN / Unknown Venipuncture / Unknown 09/28/2023 8:44 AM CDT 09/28/2023 8:44 AM CDT Edilma Carson MD [facility]MI[facility]Y [facility] [address] [place] [address], * CT CHEST ABDOMEN PELVIS W (09/07/2023 11:14 AM CDT) Anatomical Region Laterality Modality Abdomen, Pelvis, AORTA, LIVER, SPLEEN, CHEST Computed Tomography 09/07/2023 4:28 PM CDT Narrative 09/07/2023 4:28 PM CDT For Patients: ??As a result of the Century Cures Act, medical imaging exams and procedure reports are released immediately into your electronic medical record. ??You may view this report before your referring provider. ??If you have questions, please contact your health care provider. Indication: Non-small cell lung cancer Technique: CT CHEST/ABD/PELVIS W Omnipaque [address] scans at this facility use dose modulation, iterative reconstruction, and/or weight-based dosing when appropriate to reduce radiation dose to as low as reasonably achievable. Comparison: 04/26/2023 Findings: In the chest, stable appearance of the left thyroid lobe. Atherosclerotic changes. Stable pericardial cyst. No pericardial effusion. No suspicious lymph nodes. Stable postop changes on the right with residual areas of linear scarring. Emphysema. Stable nodule left upper lobe at the left lung apex. Focal ground-glass density within the lateral aspect of the left lung. Additional nodular densities within the lingula are similar. Unchanged nodule left lower lobe. No pleural effusion. No fracture. Degenerative disc disease. No suspicious osseous lesion. In the abdomen, there is no suspicious intrahepatic mass. The gallbladder is nondistended. Mild periportal edema is similar. Spleen is normal. Normal adrenal glands. Simple left renal cortical cysts. Pancreas is normal. Atherosclerotic changes without aneurysm. Ectasia of the distal abdominal aorta is again noted measuring 2.5 cm. Stable subcentimeter retroperitoneal lymph nodes. In the pelvis, the bladder is partially distended. No pelvic mass. Sigmoid diverticulosis. No diverticulitis. The appendix is normal. No free air, free fluid or abscess. No enlarged pelvic sidewall or inguinal lymph nodes. Similar appearance of the left inferior sacrum. Impression: Stable appearance of the left inferior sacrum. Stable left-sided pulmonary nodules. New ground-glass density within the lateral left upper lobe, likely scarring or inflammatory. Previously noted right middle lobe nodule is not identified on the current study. No adenopathy in the chest, abdomen or pelvis. Stable left thyroid lobe nodule. Please note that all CT scans at this facility use dose modulation, iterative reconstruction, and/or weight-based dosing when appropriate to reduce radiation dose to as low as reasonably achievable. Dictated by Panfilo Salas MD @ 09/07/2023 4:28:38 PM (Electronically Signed) Procedure Note Panfilo Salas MD - 09/07/2023 For Patients: As a result of the Century Cures Act, medical imagingexams and procedure reports are released immediately into your electronicmedical record. You may view this report before your referring provider.If you have questions, please contact your health care provider. Indication: Non-small cell lung cancer Technique: CT CHEST/ABD/PELVIS W Omnipaque 350 [address] Please note that all CT scans at this facility use dose modulation,iterative reconstruction, and/or weight-based dosing when appropriate toreduce radiation dose to as low as reasonably achievable. Comparison: 04/26/2023 Findings: In the chest, stable appearance of the left thyroid lobe. Atheroscleroticchanges. Stable pericardial cyst. No pericardial effusion. No suspiciouslymph nodes. Stable postop changes on the right with residual areas oflinear scarring. Emphysema. Stable nodule left upper lobe at the left lungapex. Focal ground-glass density within the lateral aspect of the leftlung. Additional nodular densities within the lingula are similar.Unchanged nodule left lower lobe. No pleural effusion. No fracture.Degenerative disc disease. No suspicious osseous lesion. In the abdomen, there is no suspicious intrahepatic mass. The gallbladderis nondistended. Mild periportal edema is similar. Spleen is normal.Normal adrenal glands. Simple left renal cortical cysts. Pancreas isnormal. Atherosclerotic changes without aneurysm. Ectasia of the distalabdominal aorta is again noted measuring 2.5 cm. Stable subcentimeterretroperitoneal lymph nodes. In the pelvis, the bladder is partially distended. No pelvic mass. Sigmoiddiverticulosis. No diverticulitis. The appendix is normal. No free air,free fluid or abscess. No enlarged pelvic sidewall or inguinal lymphnodes. Similar appearance of the left inferior sacrum. Impression: Stable appearance of the left inferior sacrum. Stable left-sided pulmonary nodules. New ground-glass density within thelateral left upper lobe, likely scarring or inflammatory. Previously notedright middle lobe nodule is not identified on the current study. No adenopathy in the chest, abdomen or pelvis. Stable left thyroid lobe nodule. Please note that all CT scans at this facility use dose modulation,iterative reconstruction, and/or weight-based dosing when appropriate toreduce radiation dose to as low as reasonably achievable. Dictated by Panfilo Salas MD @ 09/07/2023 4:28:38 PM (Electronically Signed) Dianna Henderson NP CT * (ABNORMAL) CREATININE,ISTAT (09/07/2023 10:39 AM CDT) CREATININE, POCT 1.20(H) 0.57 - 1.11 mg/dL 09/07/2023 10:41 AM CDT [facility] Comment:Caution: Patients ta radha Hydroxyurea have falsely increased iStat Creatinine results. Verify creatinine results ordering a Creatinine (43858.2) eGFR 51(L) >90 mL/min/1.7 3m2 09/07/2023 10:41 AM CDT [facility] Comment:As of 2021, eG FR is calculated by the CKD-EPI creatinine equation without race adjustment. eGFR can be influenced by muscle mass, exercise, and diet. The reported eGFR is an estimation only and is only applicable if the renal function is stable. Blood BLOOD SPECIMEN / Unknown 09/07/2023 10:39 AM CDT 09/07/2023 10:41 AM CDT Edilma Carson MD CHEMISTRY [facility] [address] [place] [address], * SCAN-COLONOSCOPY (12/15/2020 12:00 AM CDT) Scanner OTHER * ANTI HCV (04/09/2014 8:32 AM [employer]) HEPATITIS C ANTIBODY Non-Reacti ve Non-Reacti ve 04/09/2014 2:18 PM [facility] Blood specimen (specimen) BLOOD SPECIMEN / Unknown Venipuncture / Unknown 04/09/2014 8:32 AM [employer] 04/09/2014 8:32 AM [facility] Narrative [facility] - 04/09/2014 2:18 PM [employer] Antibodies to HCV not detected; does not exclude the possibility of exposure to HCV. Rebecca Elizabeth CONTRACT SERVICEMAN SEND OUTS [facility] [address] [place] [address], from Last 3 Months or Most Recently Relevant to Health Maintenance Advance Directives * Full Code (Latest Code Status on File) Date Activated Date Inactivated Comments 05/29/2020 5:41 AM 06/01/2020 3:26 PM Question Answer Comments Code Status Discussion: Not Discussed * Full Code Date Activated Date Inactivated Comments 04/28/2020 6:10 AM 04/28/2020 12:56 PM Question Answer Comments Code Status Discussion: Not Discussed Care Teams Box Icer Relationship Specialty Start Date End Date Edilma Carson MD [address] [place], [place] [address] PCP - General Family Practice 09/08/18 Panfilo Figueroa MD [address] [place] [address] Pulmonology Pulmonary Medicine 04/21/20 Janice Espinoza, RAFAL, BSN, OCN [address] [place] [address] Cancer Nurse Coordinator Registered Nurse 04/21/20 Rusty Carr MD [address] [place] [address] Consulting Physician Surgery - Cardiothoracic 05/14/20 Arlen Britton MBBS [address] [place] [address] Medical Oncologist Oncology 06/17/20
== END 2023-12-05 13:36 | disposition home or self-care (01) ==
LOC: RAD 13:37
PROVIDERS: PCP Family Medicine; Visit Provider Nurse Practitioner Adult Health
DX: C34.11 Malignant neoplasm of upper lobe, right bronchus or lung (principal)
CPT/HCPCS: 93306

== ENCOUNTER 2024-03-20 10:23 | Outpatient (CLI) | payer BC, SELFPAY ==
--- OUTSIDE RECORDS SUMMARY | 2024-03-20 10:28 | XMS_ITS | Clinical Summary ---
Author Organization [facility] Address [place], [place] [address] Care Team Providers Care Metal Mold Dresser Name Role Phone Edilma Carson MD Primary Care Provider Panfilo Figueroa MD Unavailable [phone] Janice Espinoza RN, BSN, OCN Unavailable Rusty Carr MD Unavailable [phone] Arlen Britton MBBS Unavailable [phone] Allergies Active Allergy Reactions Criticality Noted Date [...] lung 05/14/2020 COPD (chronic obstructive pulmonary disease) Overview (11/10/2011): Last PFT 2004, stage II by the GOLD standards Other acne 07/21/2011 Overview (07/21/2011): Sees Dr. Nunez Migraine headache 04/09/2011 Tobacco use disorder 07/27/2010 Sinus congestion 04/06/2010 Unspecified vitamin D deficiency 10/02/2007 Lung mass Encounters Date Type Department Care Team Description 03/16/2024 Orders Only [facility] Scanner 1 scan: (1-Ord) [facility], [facility], 03/16/2024 02/21/2024 9:00 AM CDT Ancillary Procedure [facility] [address] [place] [address] 02/21/2024 Travel 02/17/2024 Orders Only [facility] [address] [place] [address] [address] Edilma Carson MD <No scans attached> 02/16/2024 11:45 AM CDT Nurse/Clinic Staff Only [facility] [address] [place] [address] Immunization/Inject ion (COVID-19, flu/) 02/16/2024 Travel 02/10/2024 Transcribe Orders [facility] [address] [place] [address] Arlen Britton MBBS 12/27/2023 Telephone [facility] [address] [place] [address] Edilma Carson MD Concerns (colonoscopy) 12/23/2023 Transcribe Orders [facility] [address] [place] [address] Dianna Henderson NP from Last 3 Months Immunizations Name Administration Dates Next Due COVID-19 VACCINE SPIKEVAX (M ODERNA 50MCG/0.5ML) 12YO+ PFS 02/16/2024,03/30/2023 COVID-19 vaccine (Pfizer-Bio NTech 30mcg/0.3mL) 12YO+ BIVALENT PF, MDV 05/17/2022 Influenza RIV4 (Age 18+ Year s) PRESERV FREE 03/07/2021 Influenza, IIV4 03/30/2023,,04/10/2020,2018 Influenza, Inactivated IIV3 (Age 65+ Years) Preserv Free 02/16/2024 Pneumococcal Conj 20-valent (Prevnar 20) 09/28/2023 Tdap [...] Date Recorded PHQ-2 TOTAL SCORE 2 03/31/2023 [facility] - Occupational Stress Questionnaire Answer Date Recorded Feeling of Stress Not at all 04/10/2020 Exercise Vital Sign Answer Date Recorde d Days of Exercise per Week 1 day 2019 Minutes of Exercise per Session 30 min 04/10/2020 Social Connections Answer Date Recorded Do you often feel lonely or isolated from those around you? 0 09/28/2023 Financial Resource Strain Answer Date R ecorded Difficulty of Paying Living Expenses 3 09/28/2023 Difficulty of Paying Living Expenses Not on file 09/28/2023 Food Insecurity Answer Date Recorded Do you worry your food will run out before you are able to buy more? 1 09/28/2023 Transportation Needs Answer Date Record ed Does lack of transportation keep you from medica l appointments? 1 09/28/2023 Does lack of transportation keep you from work, meetings or getting things that you need? 1 09/28/2023 Housing Stability Answer Date Recorded What is your housing situation today? 1 09/28/2023 Sex and Gender Information Value [...] ST Respiratory Rate 16 04/08/2023 10:29 AM SHIPYARD PAINTER HELPER Oxygen Saturation 96% 09/28/2023 7:38 AM CDT Inhaled Oxygen Concentration - - Weight 76.9 kg (169 lb 9.6 oz) 09/28/2023 7:38 A M CDT Height 165 cm (5' 4.96) 09/28/2023 7:38 AM CDT Body Mass Index 28.26 09/28/2023 7:38 AM CDT Plan of Treatment Health Maintenance Due Date Last Done Comments HIV for age 15-65 1973 Depression screening for age 12+ 03/31/2024 03/31/2023, 03/31/2023, 03/30/2023, Additional history exists COVID-19 vaccine series ( season) 2024 02/16/2024, 03/30/2023, 05/17/2022, Additional history exists BMI (ht and wt on same day) for age 18+ 09/27/2024 09/28/2023, 04/08/2023, 01/29/2021, Additional history exists Mammogram for age 45-75 10/02/2024 10/03/19 24, 08/23/2022, 07/31/2021, Additional history exists Low Dose CT (for lung CA) ag e 50-80 02/20/2025 02/21/2024, 09/07/2023, 04/26/2023, Additional history exists Tetanus booster 04/29/2025 04/29/2015, [...] DEXA/DXA scan for age 65+ Completed 10/03/2023, Influenza for age 65+ Completed 02/16/2024 , 03/30/2023, 03/04/2022, Additional history exists Procedures Procedure Name Priority Date/Time Associated Diagnosis Comments SCAN-OPERATIVE/PROC EDURE REPORT 03/16/2024 12:[address] CHEST ABDOMEN PELVIS W Routine 02/21/2024 9:55 AM CDT Non-small cell lung cancer (HC) CREATININE,ISTAT Routine 02/21/2024 8:59 AM CDT Observation or evaluation for suspected condition XR MAMMO BILAT SCREENING Routine 10/03/2023 2:56 PM CDT Visit for screening mammogram XR DXA BONE DENSITY 2 SITES AXIAL Routine 10/03/2023 2:37 PM CDT Menopause LIPID PANEL W REFLEX MEASURED LDL Routine 09/28/2023 8:44 AM CDT Lipid screening SCAN-COLONOSCOPY 12/15/2020 12:0 0 AM CDT ANTI HCV Routine 04/09/2014 8:32 AM SHIPYARD PAINTER HELPER Need for hepatitis C screening test from Last 3 Months or Most Recently Relevant to Health Maintenance Results * SCAN-OPERATIVE/PROCEDURE REPORT (03/16/2024 12:00 AM CDT) Scanner OTHER * CT CHEST ABDOMEN PELVIS W (02/21/2024 9:55 AM CDT) Anatomical Region Laterality Modality Abdomen, Pelvis, AORTA, LIVER, SPLEEN, CHEST Computed Tomography 02/21/2024 3:59 PM CDT Impressions 02/21/2024 3:59 PM CDT 1. Right upper lobectomy and posttreatment changes in the sacrum, stable. 2. New micronodular infiltrate in the left upper lobe is likely infectious/inflammatory. 3. Stable additional pulmonary nodules. Please note that all CT scans at this facility use dose modulation, iterative reconstruction, and/or weight-based dosing when appropriate to reduce radiation dose to as low as reasonably achievable. Dictated by Abhi King MD @ 02/21/2024 3:59:21 PM (Electronically Signed) Narrative 02/21/2024 3:59 PM CDT For Patients: ??As a result of the 21st Century Cures Act, medical imaging exams and procedure reports are released immediately into your electronic medical record. ??You may view this report before your referring provider. ??If you have questions, please contact your health care provider. INDICATION: Metastatic lung cancer on treatment. TECHNIQUE: CT chest, abdomen and pelvis acquired with 100 mL Omnipaque 350 IV contrast. COMPARISON: 09/07/2023, 04/26/2023 chest abdomen pelvis CTs FINDINGS: CHEST: Cardiovascular structures: Heart size is normal. Thoracic aorta and main pulmonary artery are normal in caliber. ? Mediastinum and jordyn: No mass or adenopathy. Stable left thyroid nodule. Lungs and pleura: Right upper lobectomy. Emphysema. Mild volume loss and scarring in the right middle lobe. Scarring in the lingula. Cluster of micronodules in the lateral posterior left upper lobe is unchanged. Micronodular infiltrate in the medial left upper lobe and apex images 14 through 24 series 9 is new and likely infectious/inflammatory. Patchy right lung ground-glass opacities seen on 04/26/2023 have resolved. Chest wall and axilla: No mass or adenopathy. ?? Bones: No suspicious bone lesions. ??Unremarkable for age. ?? ABDOMEN AND PELVIS: Liver: Unremarkable. ?? Gallbladder and bile ducts: Unremarkable. ?? Pancreas: Unremarkable. ?? Spleen: Unremarkable. ?? Adrenal glands: Unremarkable. ?? Kidneys: Bilateral cysts. GI tract: Unremarkable. Vascular structures: Atherosclerosis. Ectatic infrarenal abdominal aorta. Lymph nodes: Unremarkable. ?? Miscellaneous: Unremarkable. ??No free air or significant free fluid. ?? Pelvic Organs: Hysterectomy. Bones: Post treatment changes in the left side of the sacrum as before. Procedure Note Abhi King MD - 02/21/2024 For Patients: As a result of the Cures Act, medical imagingexams and procedure reports are released immediately into your electronicmedical record. You may view this report before your referring provider.If you have questions, please contact your health care provider. INDICATION: Metastatic lung cancer on treatment. TECHNIQUE: CT chest, abdomen and pelvis acquired with 100 mL Omnipaque 350 IVcontrast. COMPARISON: 09/07/2023, 04/26/2023 chest abdomen pelvis CTs FINDINGS: CHEST: Cardiovascular structures: Heart size is normal. Thoracic aorta and mainpulmonary artery are normal in caliber. Mediastinum and jordyn: No mass or adenopathy. Stable left thyroid nodule. Lungs and pleura: Right upper lobectomy. Emphysema. Mild volume loss andscarring in the right middle lobe. Scarring in the lingula. Cluster ofmicronodules in the lateral posterior left upper lobe is unchanged.Micronodular infiltrate in the medial left upper lobe and apex images 14through 24 series 9 is new and likely infectious/inflammatory. Patchyright lung ground-glass opacities seen on 04/26/2023 have resolved. Chest wall and axilla: No mass or adenopathy. Bones: No suspicious bone lesions. Unremarkable for age. ABDOMEN AND PELVIS: Liver: Unremarkable. Gallbladder and bile ducts: Unremarkable. Pancreas: Unremarkable. Spleen: Unremarkable. Adrenal glands: Unremarkable. Kidneys: Bilateral cysts. GI tract: Unremarkable. Vascular structures: Atherosclerosis. Ectatic infrarenal abdominal aorta. Lymph nodes: Unremarkable. Miscellaneous: Unremarkable. No free air or significant free fluid. Pelvic Organs: Hysterectomy. Bones: Post treatment changes in the left side of the sacrum as before. IMPRESSION: 1. Right upper lobectomy and posttreatment changes in the sacrum, stable. 2. New micronodular infiltrate in the left upper lobe is likelyinfectious/inflammatory. 3. Stable additional pulmonary nodules. Please note that all CT scans at this facility use dose modulation,iterative reconstruction, and/or weight-based dosing when appropriate toreduce radiation dose to as low as reasonably achievable. Dictated by Abhi King MD @ 02/21/2024 3:59:21 PM (Electronically Signed) Arlen JIN CT * POCT Creatinine (02/21/2024 8:59 AM CDT) POCT,CREATININ E, ISTAT 1.2 0.6 - 1.3 mg/dL [facility] Blood BLOOD SPECIMEN / Unknown 02/21/2024 8:59 AM CDT 02/21/2024 9:00 AM CDT Edilma Carson MD CHEMISTRY [facility] [address] [place] [address], [facility] [address] [place] [address] * XR MAMMO BILAT SCREENING (10/03/2023 2:56 [...] For Patients: As a result of the Cures Act, medical imaging exams and procedure reports are released immediately into your electronic medical record. You may view this report before your referring provider. If you have questions, please contact your health care provider. XR MAMMO BILAT SCREENING [[id number]] CLINICAL HISTORY: ??This is an asymptomatic 63 y.o. patient. INDICATION FOR EXAM: Mammogram Screening. TECHNIQUE: CC & MLO views were obtained. ??This study was evaluated with the assistance of Computer-Aided Detection. COMPARISON FILM: Yes 08/23/22 [facility] ?? FINDINGS: ??The breasts are heterogeneously dense, [...] recommended in 3-5 years. Zahra Stark PA-C [facility] 10/11/2023 Narrative 10/11/2023 1:53 PM CDT For Patients: Results are automatically released to your [facility] ([employer]) account once available, in compliance with federal regulations. This means that you may see your results before your provider has had a chance to review them. Please allow 2-3 business days for your provider to comment on the results. XR DXA Bone Mineral Density (BMD) EXAM LOCATION: [facility] [address] [facility] [address] PATIENT NAME: Priya Coleman DATE OF : [...] two scanners are made by the same window machine operator. PROCEDURE: Dual-energy x-ray absorptiometry performed with routine [...] Z-Score: - 0.8 Change from prior in 2014: ??Decrease 17.0%. Right femoral neck BMD: 0.778 g/cm2 T-Score: - 1.9 Z-Score: - 0.7 Change from prior in 2014: ??Decrease 15.1%. Left hip BMD: 0.750 g/cm2 T-Score: - 2.0 Z-Score: - 1.1 Change from prior in 2014: ??Decrease 16.4%. Right hip BMD: 0.790 g/cm2 T-Score: - 1.7 Z-Score: - 0.8 Change from prior in 2014: ??Decrease 15.3%. WHO criteria: Normal: T-score at or above -1 SD Osteopenia: T-score between -1.1 and -2.4 SD Osteoporosis: T-score at or below -2.5 SD FRAX RISK CALCULATION (USED FOR OSTEOPENIA ONLY): 10-year probability of major osteoporotic fracture: 10.8%. 10-year probability of hip fracture: 1.7%. Edilma Carson MD DEXA * LIPID PANEL W REFLEX MEASURED LDL (09/28/2023 8:44 AM CDT) [facility] CHOLESTEROL,TOTAL 181 100 - 199 mg/dL 09/28/2023 6:19 PM [facility] Comment: Cholesterol, Total Reference Ranges Desirable <200 mg/dL Borderline 200-239 mg/dL High >=240 mg/dL TRIGLYCERIDES 45 <150 mg/dL 09/28/2023 6:19 PM [facility] HDL CHOLESTEROL 54 >40 mg/dL 6:19 PM T [facility] NON-HDL CHOLESTEROL 127 <145 mg/dl 09/28/2023 6:19 PM T [facility] CHOL/HDL RATIO 3.35 <4.50 09/28/2023 6:19 PM T [facility] LDL CHOLESTEROL 118 <=130 mg/dL 09/28/2023 6:19 PM T [facility] VLDL CHOLESTEROL 9 <=30 mg/dL 09/28/2023 6:19 PM CDT [facility] PROVIDER ORDERED STATUS RANDOM 09/28/2023 6:19 PM CDT [facility] Blood BLOOD SPECIMEN / Unknown Venipuncture / Unknown 09/28/2023 8:44 AM CDT 09/28/2023 8:44 AM CDT Edilma Carson MD CHEMISTRY Performing Organization Address City/[facility]/ZIP Co de Phone Number [facility] [address] [place] [address], * SCAN-COLONOSCOPY (12/15/2020 12:00 AM CDT) Scanner OTHER * ANTI HCV (04/09/2014 8:32 AM SHIPYARD PAINTER HELPER) HEPATITIS C ANTIBODY Non-Reacti ve Non-Reacti ve 04/09/2014 2:18 PM SHIPYARD PAINTER HELPER [facility] Blood specimen (specimen) BLOOD SPECIMEN / Unknown Venipuncture / Unknown 04/09/2014 8:32 AM SHIPYARD PAINTER HELPER 04/09/2014 8:32 AM SHIPYARD PAINTER HELPER Narrative [facility] - 04/09/2014 2:18 PM SHIPYARD PAINTER HELPER Antibodies to HCV not detected; does not exclude the possibility of exposure to HCV. Rebecca Elizabeth BACK SIZER SEND OUTS Performing Organization Address [facility]/ZIP Co de Phone Number [facility] [facility] [address] [place] [address], from Last 3 Months or Most Recently [...] Code Status Discussion: Not Discussed Care Teams Metal Mold Dresser Relationship Specialty Start Date End Date Edilma Carson MD [address] [place] [address] PCP - General Family Practice 09/08/18 Panfilo Figueroa MD [address] [place] [address] Pulmonology Pulmonary Medicine 04/21/20 Janice Espinoza RN, BSN, OCN [address] [place] [address] Cancer Nurse Coordinator Registered Nurse 04/21/20 Rusty Carr MD [address] [place] [address] Consulting Physician Surgery - Cardiothoracic 05/14/20 Arlen Britton MBBS [address] [place] [address] Medical Oncologist Oncology 06/17/20
--- NOTE | 2024-03-20 12:18 | W.ANESCHARGE ---
Anesthesia Charges Start Date/Time Anesthesia Start Date: 03/20/24 Anesthesia Start Time: 11:39 Stop Date/Time Anesthesia Stop Date: 03/20/24 Anesthesia Stop Time: 12:25 Summary Extremes of Age - Over 70 or under 1: MDA
--- NOTE | 2024-03-20 12:28 | W.ANESCHARGE ---
Anesthesia Charges Start Date/Time Anesthesia Start Date: 03/20/24 Anesthesia Start Time: 11:39 Stop Date/Time Anesthesia Stop Date: 03/20/24 Anesthesia Stop Time: 12:25
== END 2024-03-20 10:24 | disposition home or self-care (01) ==
LOC: OP CLINIC 10:27
PROVIDERS: PCP Family Medicine; Visit Provider Surgery
DX: Z86.0100 Personal history of colon polyps, unspecified (principal)
CPT/HCPCS: 00812; 45378; 99100; J2704

== ENCOUNTER 2024-04-25 13:55 | Outpatient (CLI) | payer BC, SELFPAY ==
--- OUTSIDE RECORDS SUMMARY | 2024-04-25 14:01 | XMS_ITS | Clinical Summary ---
Author Organization [facility] Address [place], [place] [address] Care Team Providers Care Teleradiologist Name Role Phone Edilma Carson MD Primary Care Provider [phone] Panfilo Figueroa MD Unavailable [phone] Janice Espinoza RN, BSN, OCN Unavailable Rusty Carr MD Unavailable Arlen Britton MBBS Unavailable [phone] Allergies Active Allergy Reactions Criticality Noted Date [...] Encounters Date Type Department Care Team Description 04/03/2024 Telephone [facility] [place] [address] [place] [address] Edilma Carson MD Referral (Pulmonology ) 03/20/2024 Orders Only [facility] Scanner 1 scan: (1-Ord) [place] 03/16/2024 Orders Only [facility] Scanner 1 scan: (1-Ord) [facility], 03/16/2024 02/21/2024 9:00 AM CDT Ancillary Procedure [facility] [place] [address] [facility] [address] 02/21/2024 Travel 02/17/2024 Orders Only [facility] [place] [address] [facility] [address] Edilma Carson MD <No scans attached> 02/16/2024 11:45 AM CDT Nurse/Clinic Staff Only [facility] [place] [address] [facility] [address] Immunization/Inject ion (COVID-19, flu/) 02/16/2024 Travel 02/10/[address] [facility] [address] [place] [address] Arlen Britton MBBS from Last 3 Months Immunizations Name Administration [...] Date Recorded PHQ-2 TOTAL SCORE 2 03/31/2023 [facility] ional [facility] - Occupational Stress [...] 68 09/28/2023 7:38 AM CDT Temperature 36.9 C (98.5 F) 05/20/2021 12:12 PM INTERVENTIONAL PAIN PHYSICIAN Respiratory Rate 16 04/08/2023 10:29 AM INTERVENTIONAL PAIN PHYSICIAN Oxygen Saturation 96% 09/28/2023 7:38 AM CDT Inhaled Oxygen Concentration - - Weight 76.9 kg (169 lb 9.6 oz) 09/28/2023 7:38 A M CDT Height 165 cm (5' 4.96) 09/28/2023 7:38 AM CDT Body Mass Index 28.26 09/28/2023 7:38 AM CDT Plan of Treatment Upcoming Encounters Date Type Department Care Team (Late st Contact Info) Description 05/24/2024 1:35 PM INTERVENTIONAL PAIN PHYSICIAN Office Visit [facility] [place] [address] [facility] [address] Edilma Carson MD [address] [facility] [address] Health Maintenance Due Date Last Done Comments HIV for age 15-65 1973 Depression screening for age 12+ 03/31/2024 03/31/2023, 03/31/2023, 03/30/2023, Additional history exists COVID-19 vaccine series (2023- season) 2024 02/16/2024, 03/30/2023, 05/17/2022, Additional history [...] Additional history exists Colonoscopy through age 75 03/20/203403/20, 12/15/2020, 12/15/2020, Additional history exists Hepatitis C screening for ag e 18-79 Completed 04/09/2014 Tdap Completed 04/29/2015, 10/22/2011 Zoster (shingles) series for age 50+ Completed 05/17/2022, 03/04/2022 Pneumococcal series for age 65+ Completed DEXA/DXA scan for age 65+ Completed 10/03/2023, Influenza for age 65+ Completed 02/16/2024 , 03/30/2023, 03/04/2022, Additional history exists Procedures Procedure Name Priority Date/Time Associated Diagnosis Comments SCAN-COLONOSCOPY 03/20/2024 12:0 0 AM CDT SCAN-OPERATIVE/PROC EDURE REPORT 03/16/2024 12:00 AM CDT [...] Routine 09/28/2023 8:44 AM CDT Lipid screening ANTI HCV Routine 04/09/2014 8:32 AM INTERVENTIONAL PAIN PHYSICIAN Need for hepatitis C screening test from Last 3 Months or Most Recently Relevant to Health Maintenance Results * SCAN-COLONOSCOPY (03/20/2024 12:00 AM CDT) Scanner OTHER * SCAN-OPERATIVE/PROCEDURE REPORT (03/16/2024 12:00 AM CDT) [...] Narrative 02/21/2024 3:59 PM CDT For Patients: As a result [...] main pulmonary artery are normal in caliber. Mediastinum and [...] E, ISTAT 1.2 0.6 - 1.3 mg/dL [facility] Blood BLOOD SPECIMEN / Unknown 02/21/2024 8:59 AM CDT 02/21/2024 9:00 AM CDT Edilma Carson MD CHEMISTRY [facility] [address] [place] [address], [facility] [address] [place] [address] * XR MAMMO BILAT SCREENING (10/03/2023 2:56 PM CDT) Anatomical Region Laterality Modality BREASTS, Breast Left, Breast Right Bilateral Mammography Impressions 10/04/2023 3:26 PM CDT There is no radiographic evidence for malignancy. Recommend annual mammograms. MAMMOGRAM ASSESSMENT: ACR 1 Negative PATIENTS: You will also receive a letter with your examination results in an easy to read format. If you have questions about your results, please contact your referring provider. Narrative 10/04/2023 3:26 PM CDT For Patients: As a result of the Century Cures Act, medical imaging exams and procedure reports are released immediately into your electronic medical record. You may view this report before your referring provider. If you have questions, please contact your health care provider. XR MAMMO BILAT SCREENING [[id number]] CLINICAL HISTORY: This is an asymptomatic 63 y.o. patient. INDICATION FOR EXAM: Mammogram Screening. TECHNIQUE: CC & MLO views were obtained. This study was evaluated with the assistance of Computer-Aided Detection. COMPARISON FILM: Yes 08/23/22 [facility] FINDINGS: The breasts are heterogeneously dense, which may obscure [...] recommended in 3-5 years. Zahra Stark PA-C [facility] 10/11/2023 Narrative 10/11/2023 1:53 PM CDT For Patients: Results are automatically released to your [facility] account once available, in compliance with federal regulations. This means that you may see your results before your provider has had a chance to review them. Please allow 2-3 business days for your provider to comment on the results. XR DXA Bone Mineral Density (BMD) EXAM LOCATION: [address] [address] PATIENT NAME: Priya Coleman DATE OF : 1960 EXAM DATE: 10/03/2023 REQUESTING PROVIDER: Edilma Carson MD GENDER AT : female HEIGHT: 5' 4.96 (09/28/2023) WEIGHT: 169 lb 9.6 oz (09/28/2023) MENOPAUSAL STATUS: Postmenopausal [...] two scanners are made by the same watch assembly instructor. PROCEDURE: Dual-energy x-ray absorptiometry performed with routine [...] + 0.2 Change from prior in 2013: Decrease 4.6%. RESULTS FEMUR Left femoral neck BMD: 0.753 g/cm2 T-Score: - 2.0 Z-Score: - 0.8 Change from prior in 2013: Decrease 17.0%. Right femoral neck BMD: 0.778 g/cm2 T-Score: - 1.9 Z-Score: - 0.7 Change from prior in 2013: Decrease 15.1%. Left hip BMD: 0.750 g/cm2 T-Score: - 2.0 Z-Score: - 1.1 Change from prior in 2013: Decrease 16.4%. Right hip BMD: 0.790 g/cm2 T-Score: - 1.7 Z-Score: - 0.8 Change from prior in 2013: Decrease 15.3%. WHO criteria: Normal: T-score at or above -1 SD Osteopenia: T-score between -1.1 and -2.4 SD Osteoporosis: T-score at or below -2.5 SD FRAX RISK CALCULATION (USED FOR OSTEOPENIA ONLY): 10-year probability of major osteoporotic fracture: 10.8%. 10-year probability of hip fracture: 1.7%. Edilma Carson MD DEXA * LIPID PANEL W REFLEX MEASURED LDL (09/28/2023 8:44 AM CDT) [facility] CHOLESTEROL,TOTAL 181 100 - 199 mg/dL 09/28/2023 6:19 PM T [facility] Comment: Cholesterol, Total Reference Ranges Desirable <200 mg/dL Borderline 200-239 mg/dL High >=240 mg/dL TRIGLYCERIDES 45 <150 mg/dL 09/28/2023 6:19 PM CDT [facility] HDL CHOLESTEROL 54 >40 mg/dL 6:19 PM T [facility] NON-HDL CHOLESTEROL 127 <145 mg/dl 09/28/2023 6:19 PM T [facility] CHOL/HDL RATIO 3.35 <4.50 09/28/2023 6:19 PM T [facility] LDL CHOLESTEROL 118 <=130 mg/dL 09/28/2023 6:19 PM CDT [facility] VLDL CHOLESTEROL 9 <=30 mg/dL 09/28/2023 6:19 PM CDT [facility] PROVIDER ORDERED STATUS RANDOM 09/28/2023 6:19 PM CDT [facility] Blood BLOOD SPECIMEN / Unknown Venipuncture / Unknown 09/28/2023 8:44 AM CDT 09/28/2023 8:44 AM CDT Edilma Carson MD CHEMISTRY [facility] [address] [place] [address], * ANTI HCV (04/09/2014 8:32 AM INTERVENTIONAL PAIN PHYSICIAN) HEPATITIS C ANTIBODY Non-Reacti ve Non-Reacti ve 04/09/2014 2:18 PM INTERVENTIONAL PAIN PHYSICIAN [facility] Blood specimen (specimen) BLOOD SPECIMEN / Unknown Venipuncture / Unknown 04/09/2014 8:32 AM INTERVENTIONAL PAIN PHYSICIAN 04/09/2014 8:32 AM INTERVENTIONAL PAIN PHYSICIAN Narrative [facility] - 04/09/2014 2:18 PM INTERVENTIONAL PAIN PHYSICIAN Antibodies to HCV not detected; does not exclude the possibility of exposure to HCV. Rebecca Elizabeth NP SEND OUTS [facility] [address] [place] [address], from Last 3 Months or Most Recently [...] Code Status Discussion: Not Discussed Care Teams Teleradiologist Relationship Specialty Start Date End Date Edilma Carson MD [address] [place] [address] PCP - General Family Practice 09/08/18 Panfilo Figueroa MD [address] [place] [address] Pulmonology Pulmonary Medicine 04/21/20 Janice Espinoza, RN, BSN, OCN [address] [place], [place] [id number] Cancer Nurse Coordinator Registered Nurse 04/21/20 Rusty Carr MD [address] [place] [address] Consulting Physician Surgery - Cardiothoracic 05/14/20 Arlen Britton MBBS [address] [place] [address] Medical Oncologist Oncology 06/17/20
[2024-04-25 14:28] LABS: Basophils Absolute Auto 0.04 K/uL (0.00-0.30); Basophils Percent Auto 0.8 % (0.0-3.0); Eosinophils Absolute Auto 0.13 K/uL (0.00-0.50); Eosinophils Percent Auto 2.5 % (0.0-7.0); Hematocrit 44.2 % (33.0-51.0); Hemoglobin* 14.7 gm/dL (12.0-16.0); Lymphocytes Absolute Auto 1.07 K/uL (0.90-2.90); Lymphocytes Percent Auto 20.5 % (20-44); Mean Corpuscular HGB Conc 33 gm/dL (32-36); Mean Corpuscular Hemoglobin 31 pg (26-34); Mean Corpuscular Volume 92 fL (80-100); Monocytes Percent Auto 7.1 % (0.0-11.0); Neutrophils Absolute Auto 3.62 K/uL (1.7-7.0); Neutrophils Percent Auto 69.1 % (42.0-72.0); Platelet Count* 202 K/uL (140-440); RDW Coefficient of Variation % 12.3 % (11.5-15.5); Red Blood Count 4.79 m/uL (4.00-5.20); White Blood Count* 5.23 K/uL (4.50-11.00)
[2024-04-25 14:30] LABS: Slide Review Reflex No
[2024-04-25 14:42] LABS: Albumin* 3.6 g/dL (3.3-5.0)
[2024-04-25 14:43] LABS: Chloride* 105 mmol/L (96-114); Potassium* 3.7 mmol/L (3.6-5.1); Sodium* 138 mmol/L (135-149)
[2024-04-25 14:45] LABS: Anion Gap 4 mEq/L (7-15); Aspartate Amino Transferase* 18 U/L (12-35); Bilirubin Total* 0.4 mg/dL (0.1-1.5); Carbon Dioxide* 29 mmol/L (20-32); Creatinine* 1.1 mg/dL (0.5-1.5); Estimated Glomerular Filt Rate 56 ml/min
[2024-04-25 14:46] LABS: Alanine Aminotransferase* 12 U/L (4-35); Alkaline Phosphatase* 77 U/L (40-150); Blood Urea Nitrogen* 17 mg/dL (7-30); Calcium* 9.4 mg/dL (8.4-10.6); Glucose* 89 mg/dL (60-115); Total Protein* 5.7 g/dL (6.0-8.3)
== END 2024-04-25 13:56 | disposition home or self-care (01) ==
PROVIDERS: PCP Family Medicine; Visit Provider Internal Medicine Hematology & Oncology
DX: C34.11 Malignant neoplasm of upper lobe, right bronchus or lung (principal)
CPT/HCPCS: 36415; 80053; 85025

== ENCOUNTER 2024-10-10 11:01 | Outpatient (RCR) | payer BC, SELFPAY ==
[2024-10-10 11:51] LABS: Creatinine* 1.1 mg/dL (0.5-1.5); Est. Creatinine Clearance* 45.27; Estimated Glomerular Filt Rate 55 ml/min
== END 2025-04-08 23:59 | disposition home or self-care (01) ==
LOC: CCIC 11:01
PROVIDERS: PCP Family Medicine; Referring Provider Family Medicine; Visit Provider Internal Medicine
DX: C34.11 Malignant neoplasm of upper lobe, right bronchus or lung (principal)
CPT/HCPCS: 36415; 82565; 99211